=== PATIENT | female | born 1985 | race Caucasian/White ===

== ENCOUNTER 2016-10-23 10:23 | Inpatient (IN) | payer OTHER ==
[~2016-10-23] VITALS: Ht 165.1 cm; Wt 63.0 kg
[~2016-10-23 10:23] MED LIST: TAMS0.4C98 PO
[2016-10-23] MEDS ORDERED: Lactated Ringer's 1,000 ML IV PRN (10:48)
[2016-10-23] MEDS ORDERED: Carboprost 250 mCg/mL Inj IM PRN ×2 (10:50→18:20)
[2016-10-23] MEDS ORDERED: Sodium Chloride LOK Flush 10 mL Syringe IVFLUSH PRN (10:50)
[2016-10-23] MEDS ORDERED: Oxytocin 30 Units/500 mL LR 30 UNITS in IV Premix 1 EACH IV PRN ×2 (10:50→18:20)
[2016-10-23] MEDS ORDERED: Methylergonovine 0.2 mg/mL Inj IM PRN ×2 (10:50→18:20)
[2016-10-23] MEDS ORDERED: Hemorrhage Kit, Post Partum XX ONE ×2 (10:50→18:20)
[2016-10-23] MEDS ORDERED: Oxytocin 10 Unit/mL Inj IM PRN ×2 (10:50→18:20)
[2016-10-23] MEDS ORDERED: CeFAZolin Inj 2 GM in Dextrose 5% 50 ML IV ONE (11:20)
[2016-10-23] MEDS ORDERED: CeFAZolin Inj 2 GM in IV Premix 1 EACH IV ONE (11:25)
[2016-10-23 11:27] LABS: Mean Corpuscular Hemoglobin 31.9 pg (27.0-35.0); Mean Corpuscular Volume 92.8 fL (81-100)
[2016-10-23] MEDS ORDERED: PREN-12 PO (14:39)
[2016-10-23] MEDS ORDERED: CeFAZolin Inj 1 GM in IV Premix 1 EACH IV SCH (16:30)
[2016-10-23] MEDS: Lactated Ringer's 1,000 ML IV SCH (18:17)
[2016-10-23] MEDS ORDERED: HYDROcodone-APAP 5-325 mg Tablet PO PRN (18:20)
[2016-10-23] MEDS ORDERED: LANOlin HPA 7 Gm Ointment TOPICAL PRN (18:20)
[2016-10-23] MEDS ORDERED: Witch Hazel-Glycerin Pads TOPICAL PRN (18:20)
[2016-10-23] MEDS ORDERED: Benzocaine (Dermoplast) 20% 60 Gm Spray TOPICAL PRN (18:20)
[2016-10-23] MEDS ORDERED: CeFAZolin 1 Gm/50 mL D5W IV Premix IV SCH (20:00)
[2016-10-24] MEDS: Lactated Ringer's 1,000 ML IV SCH (02:17)
[2016-10-24 08:48] LABS: Mean Corpuscular Hemoglobin 30.9 pg (27.0-35.0); Mean Corpuscular Volume 92.7 fL (81-100)
--- NOTE | 2016-10-24 11:30 | PCM.DC.OB ---
Obstetrical Discharge Summary Date of Service Oct 24, 2016 Date of hospital admission Oct 23, 2016 at 10:24 Date of Discharge: Oct 24, 2016 Providers Admitting Physician: Nicholas Deleon MD Primary Care Physician: Nicholas Deleon MD Attending Physician: Nicholas Deleon MD Problems: (1) Status post normal vaginal delivery Status: Acute ICD Code: [id number] Consultations None Invasive procedures S/p NVD Date of Procedure: Oct 23, 2016 Hospital Course: Patient came and delivered without incident. Recovered well. Vit W-Ca,Fe,FA(<1 mg) ( Formula) 1 Each Tablet 1 EACH PO ( Reported) Last Taken: Unknown Dose on 10/23/16 0800 Disposition Discharged to border status Discharge Diet: No restrictions Discharge Activity-General: Pelvic Rest for 6 weeks, Try not to overdue, Balance rest and activity, Activity as pain allows, Activity as energy allows, No lifting >15 pounds for 2 weeks Nicholas Deleon MD Oct 24, 2016 11:30
--- NOTE | 2016-10-24 11:32 | PCM.DIOB ---
Obstetrical Disch Instruction Date of Service: Oct 24, 2016 Dates of Hospitalization Date of Hospital Admission Oct 23, 2016 at 10:24 Providers Admitting Physician: Nicholas Deleon MD Primary Care Physician: Nicholas Deleon MD Attending Physician: Nicholas Deleon MD Discharge Diagnosis Problems: (1) Status post normal vaginal delivery Status: Acute ICD Code: [id number] Diet Discharge Diet: No restrictions Activity Discharge Activity-General: Pelvic Rest for 6 weeks, Balance rest and activity , Activity as pain allows, Activity as energy allows, No lifting >10 pounds for 4-6 weeks Dressing and Incisional Care Hygiene: Perineal care, Sitz bath, Dermoplast spray Follow Up Plan Follow-up Provider (F9): Nicholas Deleon MD Follow-up appointment: Weeks (8) Call your provider for: Fever or Chills, Heavy vaginal bleeding, Excessive constipation, Red painful breasts Nicholas Deleon MD Oct 24, 2016 11:32
[2016-10-24 13:00] VITALS: BP 129/77; PULSE 92; RESP 18
--- NOTE | 2016-10-24 21:24 | PROCED ---
[address] [id number] PROCEDURE NOTE PATIENT: SHARON REDMAN : 1985 MR#: [id number] ADMIT: 10/23/2016 JOB ID: [id number] DATE OF SERVICE: 10/23/2016 POSTOPERATIVE DIAGNOSIS(ES): PREOPERATIVE DIAGNOSIS(ES): SURGEON: Nicholas Deleon MD On 10/23/2016, this G2, P1 female at 40 weeks and 6 days estimated gestational age delivered a vigorous infant male, with Apgars of 8 and 9 by normal vaginal delivery. The patient presented to my clinic earlier in the day and said she had ruptured her membranes at 8:30 a.m. resulting in clear fluid. In my clinic at 10:30, her fluid did indeed appear clear and her cervix was 4 cm. She was not kip much, but I sent her up to Labor and Delivery. She started kip a bit more in Labor and Delivery and was started on antibiotics. She received one dose of Ancef 2 g IV prior to the delivery of her baby later. During the time that she was up in the [facility], the patient did post exchange manager the next 4 hours to 6 cm, but she was still not kip very hard. She had been walking and getting on the birthing ball. Finally, at about 4:30 or 5 p.m., her labor kicked in harder and she progressed more quickly to complete by 5:55 p.m. The tracing only showed some variable decels periodically but for most of her labor was seen to be reactive and reassuring. The patient did not want any intervention with Pitocin and never desired an epidural. She managed her pain exceedingly well. She pushed for about 15 minutes and delivered at 6:09 p.m. across a first-degree midline perineal laceration which did not require repair. The was delivered onto his mom's belly. At this point the cord was allowed to quit pulsing and then the cord was clamped and cut. Cord blood was sent for analysis. The placenta delivered approximately 5 minutes later spontaneously and intact. The patient did not require additional Pitocin but uterine massage allowed her uterus to contract down and minimize her bleeding. The patient's total blood loss was about 300 cc. She had no other complications though when the was born, it was noted that there was a compound right hand which created the first-degree perineal laceration as the elbow came through. The counts were correct x2. There were no other complications and the patient was in excellent condition. Of note with this delivery is that fairly immediately the infant was noted to have more ambiguous genitalia and further workup was going to be required. It was also noted that the infant was able to urinate which was a positive sign. Otherwise, the infant also continued to look good throughout the immediate phase. Further workup is pending.
== END 2016-10-24 14:08 | disposition home or self-care (01) | DRG 775 ==
LOC: FBC 10:24
PROVIDERS: ADMIT Family Medicine; ATTEND Family Medicine
PROC: 10E0XZZ Delivery of Products of Conception, External Approach (ICD-10-PCS; principal; 2016-10-23)
DX: O48.0 Post-term pregnancy (principal); Z3A.40 40 weeks gestation of pregnancy; Z37.0 Single live birth